=== PATIENT | female | born 1985 | race Caucasian/White ===

== ENCOUNTER 2016-03-14 06:09 | Inpatient (IN) | payer OTHER ==
[2016-03-14] VITALS (49 sets, daily range): BP systolic 13–174; BP diastolic 58–103; PULSE 72–121; TEMP 98.5–100
[~2016-03-14] VITALS: Ht 185.4 cm; Wt 120.9 kg
[2016-03-14] MEDS ORDERED: PRENATAL1 TA7 PO (06:44)
[2016-03-14 07:49] LABS: BASO % 0.1 % (0.0-2.0); EOS % 0.1 % (0-4.0); GRAN # 7.4 (1.4-6.5); GRAN % 76.8 % (42.2-75.2); LYMPH # 1.7 (1.2-3.4); LYMPH % 17.6 % (20.0-51.0); MEAN CELL VOLUME 83 fl (80.0-100.0); MEAN CORPUSCULAR HGB CONC 35 g/dl (33.0-37.0); MEAN PLATELET VOLUME 10.9 fl (7.4-10.4); MONO # 0.5 (0.1-0.6); MONO % 5.2 % (1.7-9.3); PLATELET COUNT 198 K/mm3 (130-400); RED BLOOD COUNT 3.97 M/mm3 (4.10-5.30); REDCELL DISTRIBUTION WIDTH-CV 13.2 % (11.5-14.5); WHITE BLOOD COUNT 9.6 K/mm3 (4.8-10.8)
[2016-03-14 07:56] LABS: PH 5 (5-8); URINE APPEARANCE Hazy; URINE BACTERIA Rare /hpf; URINE BILIRUBIN Negative (NEGATIVE); URINE BLOOD 3+ (NEGATIVE); URINE COLOR Yellow; URINE GLUCOSE Negative (NEGATIVE); URINE KETONE Negative (NEGATIVE); URINE RBC >50 /hpf; URINE UROBILINOGEN Negative (NEGATIVE)
[2016-03-14 07:57] LABS: HEMOGLOBIN 11.4 g/dl (12.5-16.0); MEAN CORPUSCULAR HEMOGLOBIN 29 pg (27.0-31.0)
[2016-03-14 08:15] LABS: ADJUSTED CALCIUM 9.2 mg/dL (8.4-10.2); ALBUMIN 3.3 gm/dL (3.5-5.0); BILIRUBIN,TOTAL 0.6 mg/dL (0.0-1.0); CALCIUM 8.6 mg/dL (8.4-10.2); CREATININE, serum 0.69 mg/dL (0.52-1.25); POTASSIUM 3.4 mmol/L (3.4-5.0); TOTAL PROTEIN 6.7 gm/dL (6.4-8.2)
[2016-03-15 01:30] VITALS: BP 125/74; PULSE 83; TEMP 98.5
[2016-03-15 06:58] LABS: HEMATOCRIT 27.6 % (37.0-47.0); HEMOGLOBIN 9.3 g/dl (12.5-16.0)
[2016-03-15 07:05] VITALS: BP 123/80; PULSE 85; TEMP 97.3
[2016-03-15 11:20] VITALS: BP 133/73; PULSE 76; TEMP 97.9
[2016-03-15 16:37] VITALS: BP 119/68; PULSE 83; TEMP 98.2
[2016-03-15 20:50] VITALS: BP 137/84; PULSE 95; TEMP 98.3
[2016-03-16 07:06] VITALS: BP 119/72; PULSE 76; TEMP 97.5
[2016-03-16] MEDS ORDERED: PERCOCET 325 MG1 TA2 PO (07:12)
[2016-03-16] MEDS ORDERED: FERROUS SU325 MG/TAB PO (07:12)
[2016-03-16] MEDS ORDERED: IBU600 MG PO (07:12)
[2016-03-16 15:10] VITALS: BP 125/74; PULSE 86; TEMP 98.5
== END 2016-03-16 17:50 | disposition home or self-care (01) | DRG 775 ==
LOC: LDRO 06:09 → OB 07:35 → LDR 07:35 → OB 23:30
PROVIDERS: Obstetrics & Gynecology
PROC: 10E0XZZ Delivery of Products of Conception, External Approach (ICD-10-PCS; principal; 2016-03-14)
PROC: 0DQR0ZZ Repair Anal Sphincter, Open Approach (ICD-10-PCS; 2016-03-14)
PROC: 0KQM0ZZ Repair Perineum Muscle, Open Approach (ICD-10-PCS; 2016-03-14)
DX: O48.0 Post-term pregnancy (principal); O70.21 Third degree perineal laceration during delivery, IIIa; O13.3 Gestational [pregnancy-induced] hypertension without significant proteinuria, third trimester; O99.02 Anemia complicating childbirth; D64.9 Anemia, unspecified; Z3A.40 40 weeks gestation of pregnancy; Z37.0 Single live birth
CPT/HCPCS: J0694; J2590; J7120